=== PATIENT | male | born 1985 | race Caucasian/White ===

== ENCOUNTER 2018-02-25 20:56 | Inpatient (IN) | payer OTHER ==
[~2018-02-25] VITALS: Ht 167.6 cm; Wt 102.1 kg
[2018-02-25 21:09] VITALS: Ht 167.6 cm; Wt 102.1 kg
[2018-02-25 22:24] LABS: BASOPHIL % 0.5 % (0-2); PLATELET COUNT 275 x10^3mcL (130-400); RED CELL DISTRIBUTION WIDTH 14.4 % (11.5-14.5)
[2018-02-25 22:37] LABS: CALCIUM 8.9 mg/dL (8.5-10.1); CARBON DIOXIDE 28.6 mmol/L (21-32); CHLORIDE SERUM 104 mmol/L (98-107); CREATININE SERUM 0.9 mg/dL (0.7-1.3); GFR1 > 60 mL/min; GLUCOSE SERUM 114 mg/dL (74-106); POTASSIUM SERUM 3.4 mmol/L (3.5-5.1); SODIUM SERUM 140 mmol/L (136-145)
[2018-02-25 22:41] LABS: ALBUMIN 3.8 g/dL (3.4-5.0); ALKALINE PHOSPHATASE 83 U/L (46-116); ALT/SGPT 42 U/L (16-63); AST/SGOT 24 U/L (15-37); BILIRUBIN TOTAL 0.2 mg/dL (0.20-1.00); TOTAL PROTEIN, SERUM 7.2 g/dL (6.4-8.2)
[2018-02-26 02:16] VITALS: BP 128/78
[2018-02-26 05:23] VITALS: BP 111/54
[2018-02-26 06:21] LABS: UA SPECIFIC GRAVITY >=1.030 (1.005-1.035); microscopic required? YES; urine erythrocyte NEGATIVE (NEGATIVE)
[2018-02-26 06:53] LABS: BASOPHIL % 0.6 % (0-2); PLATELET COUNT 242 x10^3mcL (130-400); RED CELL DISTRIBUTION WIDTH 14.5 % (11.5-14.5)
[2018-02-26 07:10] LABS: CALCIUM 8.4 mg/dL (8.5-10.1); CARBON DIOXIDE 27.9 mmol/L (21-32); CHLORIDE SERUM 104 mmol/L (98-107); CREATININE SERUM 0.8 mg/dL (0.7-1.3); GFR1 > 60 mL/min; GLUCOSE SERUM 95 mg/dL (74-106); POTASSIUM SERUM 3.8 mmol/L (3.5-5.1); SODIUM SERUM 140 mmol/L (136-145)
[2018-02-26 07:16] LABS: CHOLESTEROL/HDL RATIO 5.6
[2018-02-26 08:03] VITALS: BP 114/70
[2018-02-26 12:00] VITALS: BP 114/68
[2018-02-26 14:45] VITALS: BP 114/68
== END 2018-02-26 15:16 | disposition home or self-care (01) | DRG 243 ==
LOC: ED 20:56 → DU 02-26 01:17
PROVIDERS: Emergency Medicine; Internal Medicine
DX: K21.9 Gastro-esophageal reflux disease without esophagitis (principal); E87.6 Hypokalemia; M94.0 Chondrocostal junction syndrome [Tietze]; Z98.1 Arthrodesis status; Z82.49 Family history of ischemic heart disease and other diseases of the circulatory system
CPT/HCPCS: 83880; 85378; J7030